=== PATIENT | female | born 1975 | race Caucasian/White ===

== ENCOUNTER 2018-01-12 05:42 | Day surgery (SDC) | payer OTHER, BC ==
[2018-01-12] MEDS ORDERED: FENTAnyl 50 MCG/ML VIAL (08:26)
[2018-01-12] MEDS ORDERED: MIDAZOLAM 1 MG/ML 2 ML INJ ×2 (08:26)
== END 2018-01-12 11:21 | disposition home or self-care (01) ==
LOC: GIL 05:42
DX: K29.50 Unspecified chronic gastritis without bleeding (principal)
CPT/HCPCS: 43239; 88305